=== PATIENT | female | born 1970 ===

== ENCOUNTER 2022-11-28 16:56 | Day surgery (SDC) | payer OTHER ==
[~2022-11-28 16:56] MED LIST: FERRIC CARBOXYMALTOSE 750 MG in SODIUM CHLORIDE 250 ML IVPB ONE
[2022-11-28 17:25] VITALS: TEMP 98.7
[2022-12-02 08:07] VITALS: BP 128/73; PULSE 73; RESP 18
== END 2022-11-28 18:58 | disposition home or self-care (01) ==
LOC: JONCNONCHE 16:56
PROVIDERS: ATTEND Internal Medicine Hematology & Oncology
PROC: 3E033GC Introduction of Other Therapeutic Substance into Peripheral Vein, Percutaneous Approach (ICD-10-PCS; principal; 2022-11-28)
DX: D50.9 Iron deficiency anemia, unspecified (principal)
CPT/HCPCS: 96365; J1439

== ENCOUNTER 2022-12-05 10:20 | Day surgery (SDC) | payer OTHER ==
[2022-12-05] MEDS ORDERED: FERRIC CARBOXYMALTOSE 750 MG in SODIUM CHLORIDE 250 ML IVPB ONE (11:30)
[2022-12-05 16:37] VITALS: RESP 18; TEMP 98.4
[2022-12-05 16:39] VITALS: BP 125/73; PULSE 66
== END 2022-12-05 12:30 | disposition home or self-care (01) ==
LOC: JONCNONCHE 10:20
PROVIDERS: ATTEND Internal Medicine Hematology & Oncology
PROC: 3E033GC Introduction of Other Therapeutic Substance into Peripheral Vein, Percutaneous Approach (ICD-10-PCS; principal; 2022-12-05)
DX: D50.9 Iron deficiency anemia, unspecified (principal)
CPT/HCPCS: 96365; J1439